=== PATIENT | female | born 1985 | race Caucasian/White ===

== ENCOUNTER 2017-03-30 18:16 | Emergency (ER) | payer OTHER ==
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
[2017-03-30] MEDS ORDERED: ACETAMINOPHEN 325 MG TABLET PO ONE (22:04)
[2017-03-30 22:56] VITALS: BP 108/69
== END 2017-03-30 22:56 | disposition home or self-care (01) ==
LOC: ER 18:16
DX: S16.1XXA Strain of muscle, fascia and tendon at neck level, initial encounter (principal); S63.501A Unspecified sprain of right wrist, initial encounter; R51 Headache; R10.9 Unspecified abdominal pain; R07.81 Pleurodynia; V89.2XXA Person injured in unspecified motor-vehicle accident, traffic, initial encounter; Z91.040 Latex allergy status; Z88.6 Allergy status to analgesic agent; Z86.14 Personal history of Methicillin resistant Staphylococcus aureus infection
CPT/HCPCS: 70450; 71250; 72125; 74176; 99284

== ENCOUNTER 2017-09-29 23:33 | Emergency (ER) | payer OTHER ==
[2017-09-30 00:24] LABS: APPEARANCE,URINE SLIGHTLY-CLOUDY; BILIRUBIN,URINE NEGATIVE (NEGATIVE); GLUCOSE, URINE NEGATIVE (NEGATIVE); KETONES,URINE NEGATIVE (NEGATIVE); LEUKOCYTE ESTERASE,URINE NEGATIVE (NEGATIVE); NITRITE,URINE NEGATIVE (NEGATIVE); PROTEIN,URINE NEGATIVE (NEGATIVE); UROBILINOGEN,URINE NEGATIVE mg/dL (<2.0)
[2017-09-30] MEDS ORDERED: ONDANSETRON 4 MG TAB.RAPDIS PO ONE (01:06)
--- NOTE | 2017-09-30 01:11 | ER Document Report ---
ED General - General Chief Complaint: Lower Abdominal Pain Stated Complaint: ABDOMINAL PAIN Time Seen by Provider: 09/30/17 00:50 TRAVEL OUTSIDE OF THE [place] IN LAST 30 DAYS: No - HPI Notes: Patient is a 32-year-old female with a history of endometriosis, tubal ligation , ovarian cyst who presents ED complaining of pelvic cramping and pain 2 weeks. Patient has associated vaginal discharge and urinary urgency. Patient states that she is still eating and drinking without any difficulties, but does have a decreased p.o. intake due to nausea. Patient states that her low back is starting to become sore. Patient denies any recent illness otherwise. She denies any other significant past medical history. Denies any headache, fever, neck pain, URI, sore throat, chest pain, palpitations, syncope, cough, shortness of breath, wheeze, dyspnea, vomiting/diarrhea, urinary retention, dysuria, hematuria, loss of control of bowel or bladder, back pain, numbness/ tingling, saddle anesthesia, muscle paralysis/weakness, or rash. - Related Data Allergies/Adverse Reactions: latex [Latex] Allergy (Mild, Verified 03/30/17 19:20) rash insect venom Allergy (Verified 09/29/17 23:37) tramadol [Tramadol] Allergy (Verified 03/30/17 19:20) ketorolac tromethamine [From Toradol] Adverse Reaction (Mild, Verified 03/30/17 19:20) nauseated Past Medical History - Social History Smoking Status: Current Some Day Smoker Frequency of alcohol use: Occasional Family History: Reviewed & Not Pertinent Patient has suicidal ideation: No Patient has homicidal ideation: No Neurological Medical History: Denies: Hx Seizures Renal/ Medical History: Denies: Hx Peritoneal Dialysis Skin Medical History: Reports Hx MRSA Psychiatric Medical History: Reports: Hx Bipolar Disorder, Hx Depression Past Surgical History: Reports: Hx Abdominal Surgery - 3 C sections, Hx Section - X 3, Hx Orthopedic Surgery - right arm, Hx Vascular Surgery - blood clots. Denies: Hx Pacemaker - Immunizations Hx Diphtheria, Pertussis, Tetanus Vaccination: Yes Review of Systems - Review of Systems Notes: REVIEW OF SYSTEMS: CONSTITUTIONAL : Denies fever, chills, or sweats. Denies recent illness. EENT: Denies eye, ear, throat, or mouth pain or symptoms. Denies nasal or sinus congestion or discharge. Denies throat, tongue, or mouth swelling or difficulty swallowing. CARDIOVASCULAR: Denies chest pain. Denies palpitations or racing or irregular heart beat. Denies ankle edema. RESPIRATORY: Denies cough, cold, or chest congestion. Denies shortness of breath, difficulty breathing, or wheezing. GASTROINTESTINAL: see hpi GENITOURINARY: see hpi FEMALE GENITOURINARY: see hpi MUSCULOSKELETAL: see hpi SKIN: Denies rash, lesions or sores. NEUROLOGICAL: Denies dizziness or lightheadedness. Denies headache. Denies problems with gait or speech. Denies sensory loss, numbness, or tingling. Denies seizures. ALL OTHER SYSTEMS REVIEWED AND NEGATIVE. Dictation was performed using [employer] voice recognition software Physical Exam - Vital signs Vitals: Temp Pulse Resp BP Pulse Ox 98.3 F 114 H 18 116/80 98 09/29/17 23:45 09/29/17 23:45 09/29/17 23:45 09/29/17 23:45 09/29/17 23:45 Notes: PHYSICAL EXAMINATION: GENERAL: Well-appearing, well-nourished and in no acute distress. A&Ox4 HEAD: Atraumatic, normocephalic. EYES: Pupils equal round and reactive to light, extraocular movements intact, conjunctiva are normal. ENT: Nares patent, oropharynx clear without exudates. Moist mucous membranes. No tonsillar hypertrophy or erythema. No sinus tenderness. NECK: Normal range of motion, supple without lymphadenopathy LUNGS: Breath sounds clear to auscultation bilaterally and equal. No wheezes rales or rhonchi. HEART: Regular rate and rhythm without murmurs ABDOMEN: Soft, nondistended abdomen. No guarding, no rebound. No masses appreciated. Normal bowel sounds present. CVA tenderness negative bilaterally. + suprapubic tenderness. No tenderness at McBurney point. Female : No inguinal adenopathy. No hernia. External genitalia without erythema, lesions, or masses. Vaginal mucosa pink with white discharge. Cervix parous, pink. Uterus is smooth. No adnexal tenderness. + mild CMT Musculoskeletal: LE's b/l: FROM to passive/active. Strength 5+/5. No focal deficits. Back: FROM. Strength 5+/5. Non-tender. No step-offs, erythema, or deformity. Extremities: No cyanosis/clubbing/edema b/l. Peripheral pulses 2+. Capillary refill less than 3 seconds. NEUROLOGICAL: Normal speech, normal gait. Normal sensory, motor exams PSYCH: Normal mood, normal affect. SKIN: Warm, Dry, normal turgor, no rashes or lesions noted. Course - Re-evaluation Re-evalutation: 09/30/17 02:55 Patient is an afebrile, well-hydrated, 32-year-old female who presents the ED with bacterial vaginosis, possible PID. Vitals are stable. See pelvic exam. CBC, CMP, urinalysis unremarkable for any acute pathology. Patient is not currently and has a history of a tubal ligation. Transvaginal ultrasound showed small amount of fluid within the endometrial canal (menses vs cerv stenosis vs endometrial polyp); otherwise benign. Patient was given Zithromax and Rocephin, and her chlamydia/gonorrhea tests are pending. Patient is tolerating p.o. Low suspicion/risk for acute appendicitis, bowel obstruction , acute cholecystitis, acute cholangitis, perforated diverticulitis, incarcerated hernia, pancreatitis, perforated ulcer, peritonitis, sepsis, pelvic inflammatory disease, ectopic , tubo-ovarian abscess, ovarian torsion, or other systemic emergent condition at this time. Patient is aware that her condition can change from initial presentation and she needs to monitor symptoms closely and seek medical attention if any acute changes. I will send her home with a prescription for Zofran and doxycycline. Conservative measures otherwise for symptoms. Recheck with OBGYN in 3-5 days. Recheck with your PCM in 3-5 days. Return to the ED with any worsening/ concerning symptoms otherwise as reviewed in discharge. Patient is in agreement. - Vital Signs Vital signs: Temp Pulse Resp BP Pulse Ox 98.3 F 114 H 14 116/80 98 09/29/17 23:45 09/29/17 23:45 09/30/17 00:10 09/29/17 23:45 09/29/17 23:45 - Laboratory Result Diagrams: 09/30/17 01:10 09/30/17 01:10 Laboratory results interpreted by me: 09/30/17 01:10 RDW 19.5 H Procedures - Pelvic Exam Pelvic exam Time completed: 01:20 Cultures obtained: Yes Wet prep obtained: Yes Witnessed by: female nurse Discharge - Discharge Clinical Impression: Bacterial vaginosis, PID (acute pelvic inflammatory disease) Condition: Stable Disposition: HOME, SELF-CARE Instructions: Doxycycline ([facility]), Ob-[facility], Pelvic Inflammatory Disease ( [facility]) Additional Instructions: Push fluids (i.e. water, cranberry juice) Proper hygenic technique Keep the skin clean Safe sexual practices with condoms everytime Tylenol/ibuprofen as needed Zofran as needed for nausea Check in with the health department this week for further testing if warranted Your chlamydia/Ghon test are pending and you will be notified if positive results; you may call in 1 day for the results as well Return immediately if symptoms worsen F/u with your PCM in 3-5 days for a recheck Schedule an appointment with OBGYN for further evaluation and management.-- bring your Ultrasound report with you. Return to the ED with any development of BUTLER/fever, trouble with vision, eye redness, worsening pain, urethral discharge, urinary retention, blood in the urine, flank pain, abdominal pain, n/v, Chest Pain, shortness of breath, joint pains, trouble breathing, or any other worsening/concerning symptoms as needed otherwise. Prescriptions: Doxycycline Hyclate 100 mg PO BID #28 capsule Forms: Smoking Cessation Education Referrals: [facility] [Provider Group] - Follow up as needed FAITH SALMON MD [ACTIVE STAFF] - Follow up as needed
[2017-09-30 01:34] LABS: ABSOLUTE BASOPHILS # (AUTO) 0.1 10^3/uL (0.0-0.2); ABSOLUTE EOSINOPHILS # (AUTO) 0.2 10^3/uL (0.0-0.6); ABSOLUTE LYMPHOCYTES (AUTO) 1.8 10^3/uL (0.5-4.7); ABSOLUTE MONOCYTES (AUTO) 0.4 10^3/uL (0.1-1.4); ABSOLUTE NEUT (AUTO) 5.2 10^3/uL (1.7-8.2); BASOPHILS % (AUTO) 0.9 % (0-2); EOSINOPHILS % (AUTO) 2.4 % (0-6); HEMATOCRIT 40.6 % (36.0-47.0); HEMOGLOBIN 13.4 g/dL (12.0-15.5); HGB HCT DIFFERENCE -0.4; LYMPHOCYTES % (AUTO) 23.9 % (13-45); MEAN CORPUSCULAR HEMOGLOBIN 27.7 pg (27.0-33.4); MEAN CORPUSCULAR HGB CONC 32.9 g/dL (32.0-36.0); MEAN CORPUSCULAR VOLUME 84 fl (80-97); MONOCYTES % (AUTO) 5.5 % (3-13); RED BLOOD COUNT 4.84 10^6/uL (3.72-5.28); RED CELL DISTRIBUTION WIDTH 19.5 % (11.5-14.0); SEGMENTED NEUTROPHILS % (AUTO) 67.3 % (42-78); WHITE BLOOD COUNT 7.7 10^3/uL (4.0-10.5)
[2017-09-30 01:35] LABS: ALANINE AMINOTRANSFERASE 35 U/L (9-52); ALKALINE PHOSPHATASE 65 U/L (38-126); ANION GAP 14 (5-19); ASPARTATE AMINO TRANSFERASE 18 U/L (14-36); BILIRUBIN,DIRECT 0.1 mg/dL (0.0-0.4); BILIRUBIN,TOTAL 0.3 mg/dL (0.2-1.3); BLOOD UREA NITROGEN 12 mg/dL (7-20); CARBON DIOXIDE 25 mmol/L (22-30); CHLORIDE 104 mmol/L (98-107); CREATININE RESULT 0.94 mg/dL (0.52-1.25); GLUCOSE 90 mg/dL (75-110); LIPASE 32.1 U/L (23-300); POTASSIUM 4.1 mmol/L (3.6-5.0); SODIUM 143.1 mmol/L (137-145); TOTAL PROTEIN 7.7 g/dL (6.3-8.2)
[2017-09-30] MEDS ORDERED: AZITHROMYCIN 250 MG TABLET PO ONE (02:22)
[2017-09-30] MEDS ORDERED: CEFTRIAXONE INJ 250 MG VIAL IM ONE (02:22)
[2017-09-30] MEDS ORDERED: LIDOCAINE 1% INJ-PF (10 MG/ML) 30 ML SDV INJ ONE (02:22)
--- NOTE | 2017-09-30 02:52 | RADIOLOGY REPORT (SQ) ---
EXAM DESCRIPTION: U/S NON OB PEL TV W/DOPPLER CLINICAL HISTORY: 32 years Female, pelvic pain COMPARISON: None. TECHNIQUE: Complete pelvic ultrasound with transvaginal imaging. Limited color and spectral Doppler imaging of the ovaries. FINDINGS: The uterus measures 10.7 x 7.4 x 5.7 cm. Endometrium measures 1.7 cm. Minimal fluid within the endometrium and cervix. The cervix measures 2.9 cm in length with nabothian cysts. No myometrial abnormalities. The right ovary measures 2.9 x 2.1 x 1.8 cm. The left ovary measures 3.8 x 2.4 x 2.1 cm. Flow identified in the ovaries bilaterally. Small amount of free pelvic fluid. IMPRESSION: 1. Small amount of fluid within the endometrial canal. This may be related to menses however cervical stenosis or endometrial polyp could produce a similar appearance. Continued follow-up recommended. 2. Small amount of free pelvic fluid is likely physiologic.
[2017-09-30 03:10] VITALS: BP 112/77
== END 2017-09-30 03:11 | disposition home or self-care (01) ==
LOC: ER 23:33
DX: N76.0 Acute vaginitis (principal); B96.89 Other specified bacterial agents as the cause of diseases classified elsewhere; N73.9 Female pelvic inflammatory disease, unspecified; Z98.51 Tubal ligation status; Z91.040 Latex allergy status
CPT/HCPCS: 99284; 96372; 36415; 87086; 87210; 83690; 85025; 81025; 87088; 80053; 81001; 87491; 87591; 76830; 93976; S0119; J3490; J0696

== ENCOUNTER 2018-10-21 12:19 | Emergency (ER) | payer SELFPAY ==
--- NOTE | 2018-10-21 13:24 | ER Document Report ---
ED GI/ - General Chief Complaint: Low Back Pain Stated Complaint: LOW BACK PAIN Time Seen by Provider: 10/21/18 13:23 TRAVEL OUTSIDE OF THE [place] IN LAST 30 DAYS: No - Related Data Allergies/Adverse Reactions: latex [Latex] Allergy (Mild, Verified 03/30/17 19:20) rash insect venom Allergy (Verified 09/29/17 23:37) tramadol [Tramadol] Allergy (Verified 03/30/17 19:20) ketorolac tromethamine [From Toradol] Adverse Reaction (Mild, Verified 03/30/17 19:20) nauseated Past Medical History - Social History Family History: Reviewed & Not Pertinent Neurological Medical History: Denies: Hx Seizures Renal/ Medical History: Denies: Hx Peritoneal Dialysis Skin Medical History: Reports Hx MRSA Psychiatric Medical History: Reports: Hx Bipolar Disorder, Hx Depression Past Surgical History: Reports: Hx Abdominal Surgery - 3 C sections, Hx Section - X 3, Hx Orthopedic Surgery - right arm, Hx Vascular Surgery - blood clots. Denies: Hx Pacemaker - Immunizations Hx Diphtheria, Pertussis, Tetanus Vaccination: Yes Physical Exam - Vital signs Vitals: Temp Pulse Resp BP Pulse Ox 97.4 F 71 16 102/61 98 10/21/18 12:55 10/21/18 12:55 10/21/18 12:55 10/21/18 12:55 10/21/18 12:55 Course - Vital Signs Vital signs: Temp Pulse Resp BP Pulse Ox 97.4 F 71 16 102/61 98 10/21/18 12:55 10/21/18 12:55 10/21/18 12:55 10/21/18 12:55 10/21/18 12:55
[2018-10-21] MEDS ORDERED: NORMAL SALINE 1000 ML 1,000 ML IV ONE (13:33)
--- NOTE | 2018-10-21 13:35 | ER Document Report ---
ED Medical Screen (RME) - General Chief Complaint: Low Back Pain Stated Complaint: LOW BACK PAIN Time Seen by Provider: 10/21/18 13:23 Mode of Arrival: Ambulatory Information source: Patient Notes: 33-year-old female presented to ED for complaint of abdominal pain nausea vomiting and left flank pain. She states she is having a lot of trouble urinating. She states she dribbled a little bit this morning but has not urinated since then. Patient has a history of having blood clots with her last and needed to have blood clots removed from her arm her leg and her abdomen. Patient does have moderate abdominal tenderness generalized left flank tenderness walks with a bent over gait and states she has vomited at least 2 or 3 times today. She states she drank a protein shake this morning but was not able to drink much of anything else due to the nausea and vomiting. Patient does have hypoactive bowel sounds. I have greeted and performed a rapid initial assessment of this patient. A comprehensive ED assessment and evaluation of the patient, analysis of test results and completion of medical decision making process will be conducted by an additional ED providers. TRAVEL OUTSIDE OF THE [place] IN LAST 30 DAYS: No - Related Data Allergies/Adverse Reactions: latex [Latex] Allergy (Mild, Verified 03/30/17 19:20) rash insect venom Allergy (Verified 09/29/17 23:37) tramadol [Tramadol] Allergy (Verified 03/30/17 19:20) ketorolac tromethamine [From Toradol] Adverse Reaction (Mild, Verified 03/30/17 19:20) nauseated Past Medical History Neurological Medical History: Denies: Hx Seizures Renal/ Medical History: Denies: Hx Peritoneal Dialysis Skin Medical History: Reports Hx MRSA Psychiatric Medical History: Reports: Hx Bipolar Disorder, Hx Depression Past Surgical History: Reports: Hx Abdominal Surgery - 3 C sections, Hx Section - X 3, Hx Orthopedic Surgery - right arm, Hx Vascular Surgery - blood clots. Denies: Hx Pacemaker - Immunizations Hx Diphtheria, Pertussis, Tetanus Vaccination: Yes Physical Exam - Vital signs Vitals: Temp Pulse Resp BP Pulse Ox 97.4 F 71 16 102/61 98 10/21/18 12:55 10/21/18 12:55 10/21/18 12:55 10/21/18 12:55 01/04/19 12:55 Course - Vital Signs Vital signs: Temp Pulse Resp BP Pulse Ox 97.4 F 71 16 102/61 98 10/21/18 12:55 10/21/18 12:55 10/21/18 12:55 10/21/18 12:55 10/21/18 12:55
[2018-10-21 16:15] LABS: ABSOLUTE BASOPHILS # (AUTO) 0.1 10^3/uL (0.0-0.2); ABSOLUTE EOSINOPHILS # (AUTO) 0.5 10^3/uL (0.0-0.6); ABSOLUTE LYMPHOCYTES (AUTO) 2.2 10^3/uL (0.5-4.7); ABSOLUTE MONOCYTES (AUTO) 0.6 10^3/uL (0.1-1.4); ABSOLUTE NEUT (AUTO) 2.4 10^3/uL (1.7-8.2); BASOPHILS % (AUTO) 1.3 % (0-2); EOSINOPHILS % (AUTO) 9.2 % (0-6); HEMATOCRIT 34.8 % (36.0-47.0); HEMOGLOBIN 11.4 g/dL (12.0-15.5); LYMPHOCYTES % (AUTO) 38.2 % (13-45); MEAN CORPUSCULAR HEMOGLOBIN 26.4 pg (27.0-33.4); MEAN CORPUSCULAR HGB CONC 32.9 g/dL (32.0-36.0); MEAN CORPUSCULAR VOLUME 80 fl (80-97); MONOCYTES % (AUTO) 9.7 % (3-13); PLATELET COUNT 237 10^3/uL (150-450); RED BLOOD COUNT 4.32 10^6/uL (3.72-5.28); SEGMENTED NEUTROPHILS % (AUTO) 41.6 % (42-78); TOTAL CELLS COUNTED % (AUTO) 100 %; WHITE BLOOD COUNT 5.7 10^3/uL (4.0-10.5)
--- NOTE | 2018-10-21 16:24 | ER Document Report ---
Addendum entered and electronically signed by ROGE FARIAS PA-C 10/21/18 19:24: Course - Re-evaluation Re-evalutation: 10/21/18 19:22 Patient was ready for discharge and blood pressure was 93/51 while sitting with a map of 63 and 90/51 while laying. Chart review shows that her blood pressure is widely variable but at this point I would like to give her a small p.o. challenge and get another set of vitals. The patient had IV access and IV fluids were not infusing even with the pump she only received about 200 mL's total. IV was DC'd. Plan is to give her Zofran 4 mg ODT and p.o. challenge her with a large cup of water. - Vital Signs Vital signs: Temp Pulse Resp BP Pulse Ox 97.4 F 71 16 102/61 98 10/21/18 12:55 10/21/18 12:55 10/21/18 12:55 10/21/18 12:55 10/21/18 12:55 - Laboratory Result Diagrams: 10/21/18 15:56 10/21/18 15:56 Laboratory results interpreted by me: 10/21/18 10/21/18 15:56 15:56 Hgb 11.4 L Hct 34.8 L MCH 26.4 L RDW 16.0 H Seg Neutrophils % 41.6 L Eosinophils % 9.2 H Carbon Dioxide 32 H Glucose 125 H Original Note: ED General - General Chief Complaint: Low Back Pain Stated Complaint: LOW BACK PAIN Time Seen by Provider: 10/21/18 13:23 Mode of Arrival: Ambulatory Notes: 33-year-old female presents the emergency department for severe left flank pain that radiates around her left side to her abdomen. Patient states that he she is having trouble urinating but denies urinary retention. She describes it as sitting on the toilet and it taking "an hour "to be able to urinate. Patient denies fevers. Denies shortness of breath or chest pain. Patient planes of nausea and vomiting. Patient complains of reduced appetite. Patient denies diarrhea. Patient denies urinary urgency but does endorse difficulty with urination. She endorses a mild amount of vaginal discharge. She denies any saddle paresthesias. Patient's last bowel movement 3 days ago. Patient with history of tubal ligation. TRAVEL OUTSIDE OF THE [place] IN LAST 30 DAYS: No - Related Data Allergies/Adverse Reactions: latex [Latex] Allergy (Mild, Verified 03/30/17 19:20) rash insect venom Allergy (Verified 09/29/17 23:37) tramadol [Tramadol] Allergy (Verified 03/30/17 19:20) ketorolac tromethamine [From Toradol] Adverse Reaction (Mild, Verified 03/30/17 19:20) nauseated Past Medical History - General Information source: Patient - Social History Smoking Status: Current Every Day Smoker Chew tobacco use (# tins/day): No Frequency of alcohol use: None Drug Abuse: None Family History: Reviewed & Not Pertinent Patient has suicidal ideation: No Patient has homicidal ideation: No Neurological Medical History: Denies: Hx Seizures Renal/ Medical History: Denies: Hx Peritoneal Dialysis Skin Medical History: Reports Hx MRSA Psychiatric Medical History: Reports: Hx Bipolar Disorder, Hx Depression Past Surgical History: Reports: Hx Abdominal Surgery - 3 C sections, Hx Section - X 3, Hx Orthopedic Surgery - right arm, Hx Vascular Surgery - blood clots. Denies: Hx Pacemaker - Immunizations Hx Diphtheria, Pertussis, Tetanus Vaccination: Yes Review of Systems - Review of Systems Constitutional: See HPI EENT: No symptoms reported Cardiovascular: See HPI Respiratory: See HPI Gastrointestinal: See HPI Genitourinary: See HPI Female Genitourinary: See HPI Musculoskeletal: No symptoms reported Skin: No symptoms reported Hematologic/Lymphatic: No symptoms reported Neurological/Psychological: No symptoms reported Physical Exam - Vital signs Vitals: Temp Pulse Resp BP Pulse Ox 97.4 F 71 16 102/61 98 10/21/18 12:55 10/21/18 12:55 10/21/18 12:55 10/21/18 12:55 10/21/18 12:55 - Notes Notes: Reviewed vital signs and nursing note as charted by RN. CONSTITUTIONAL: Appears in mild distress, well-nourished, acting appropriately for age HEAD: Normocephalic, atraumatic, no swelling EYES: PERRL, Conjunctivae clear, no drainage, EOMI, no scleral icterus ENT: External ears without lesions, External auditory canal is patent, airway patent, mucous membranes pink and moist NECK: Supple, no masses CARD: Regular rate and rhythm, no murmurs, no rubs, no gallops, capillary refill < 2 seconds, symmetric pulses RESP: The lungs are clear to auscultation bilaterally, no wheezing, no rales, no rhonchi. Respiratory rate and effort are normal, normal chest excursion. No respiratory distress, no retractions, no stridor, no nasal flaring, no accessory muscle use. ABD/GI: Normal bowel sounds, non-distended, soft, tenderness to palpation left lower quadrant, masses noted across lower abdomen possibly consistent with ovarian cysts, no rebound, no guarding, no palpable organomegaly : Exquisite left CVA tenderness EXT: Normal ROM in all joints, non-tender to palpation, no effusions, no edema SKIN: Normal color for age and race, warm, dry, good turgor, no acute lesions noted NEURO: No facial asymmetry, moves all extremities equally, motor and sensory function intact Course - Re-evaluation Re-evalutation: 10/21/18 16:28 33-year-old female in mild distress presents to the emergency department for sharp lower back pain that radiates to her abdomen with difficulty urinating. Patient denies urinary retention but states that it takes her a long time to complete urination. She did have some dribbles this morning. She denies fevers or saddle paresthesias. She denies IV drug use physical exam showed exquisite left CVA tenderness and tenderness to palpation left lower quadrant. Plan is to order a CT limited to assess for renal stones. Blood work has been drawn, urine has been collected. 10/21/18 18:08 CT limited for renal stones completed did show a left-sided nonobstructive renal calculi and a large amount of stool in the colon. The patient's pain most likely reflects constipation as she has not had a bowel movement in several days. Her pain could be related to the kidney stone because she has the exquisite left CVA tenderness, but because she is positive for opiates and I suspect she is a user she could also have hyperesthesia. also the stone is nonobstructing and I am less concerned for any acute kidney condition requiring hospitalization or transfer. Urine drug screening was completed and she was positive for opiates and for cocaine. At this time there is no emergent condition and I will fluid challenge her to assess if she is stable for discharge. I will instruct her to increase her fiber intake and her fluids to help with her constipation. 10/21/18 18:08 10/21/18 18:11 - Vital Signs Vital signs: Temp Pulse Resp BP Pulse Ox 97.4 F 71 16 102/61 98 10/21/18 12:55 10/21/18 12:55 10/21/18 12:55 10/21/18 12:55 10/21/18 12:55 - Laboratory Result Diagrams: 10/21/18 15:56 10/21/18 15:56 Laboratory results interpreted by me: 10/21/18 10/21/18 15:56 15:56 Hgb 11.4 L Hct 34.8 L MCH 26.4 L RDW 16.0 H Seg Neutrophils % 41.6 L Eosinophils % 9.2 H Carbon Dioxide 32 H Glucose 125 H Discharge - Discharge Clinical Impression: Left flank pain Abdominal pain Qualifiers: Abdominal location: left lower quadrant Qualified Code(s): R10.32 - Left lower quadrant pain Condition: Good Disposition: HOME, SELF-CARE Instructions: Abdominal Pain ([facility]) Additional Instructions: Kidney Stone You are passing or have passed a kidney stone. These stones are usually due to increased calcium or uric acid concentrations in your urine. Stones within the kidney itself are not painful. The pain occurs as the stone leaves the kidney to pass down the long tube, called the ureter, leading to the bladder. If the stone is small, it will usually pass by itself. Most patients can pass the stone at home. You will usually receive medications for pain, nausea or vomiting, and sometimes a medication to assist in passing the kidney stone. However, if the pain is very severe or if vomiting prevents you from taking oral pain medications, you may need to return for further treatment. Drink three or four quarts of fluids per day. You will be given pain medication (if needed) and urine strainers. Strain all your urine to see if the stone passes. If your doctor has asked you to bring the stone in for analysis, return with the stone once it has passed. Return if pain or vomiting become severe, if you develop a high fever, if you are unable to pass your urine, or if other unusual symptoms occur.
[2018-10-21 16:32] LABS: ALANINE AMINOTRANSFERASE 29 U/L (9-52); ALBUMIN 3.8 g/dL (3.5-5.0); ALKALINE PHOSPHATASE 50 U/L (38-126); ANION GAP 6 (5-19); ASPARTATE AMINO TRANSFERASE 23 U/L (14-36); BILIRUBIN,DIRECT 0.2 mg/dL (0.0-0.4); BILIRUBIN,TOTAL 0.3 mg/dL (0.2-1.3); BLOOD UREA NITROGEN 12 mg/dL (7-20); CALCIUM 9.5 mg/dL (8.4-10.2); CARBON DIOXIDE 32 mmol/L (22-30); CHLORIDE 100 mmol/L (98-107); GLUCOSE 125 mg/dL (75-110); POTASSIUM 3.9 mmol/L (3.6-5.0); SODIUM 137.8 mmol/L (137-145); TOTAL PROTEIN 6.8 g/dL (6.3-8.2)
[2018-10-21 16:51] LABS: URINE AMPHETAMINES SCREEN NEGATIVE; URINE BARBITURATES SCREEN NEGATIVE; URINE BENZODIAZEPINES SCREEN NEGATIVE; URINE COCAINE SCREEN UNCONFIRMED POSITIVE; URINE MARIJUANA (THC) SCREEN NEGATIVE; URINE METHADONE SCREEN NEGATIVE; URINE PHENCYCLIDINE SCREEN NEGATIVE
[2018-10-21] MEDS ORDERED: ACETAMINOPHEN 325 MG TABLET PO ONE (17:30)
--- NOTE | 2018-10-21 17:46 | RADIOLOGY REPORT (SQ) ---
EXAM DESCRIPTION: CT LTD RENAL STONE PROTOCOL ON COMPLETED DATE/TIME: 10/21/2018 5:24 pm REASON FOR STUDY: Left CVA tenderness COMPARISON: CT chest abdomen pelvis 03/30/2017 TECHNIQUE: CT scan of the abdomen and pelvis performed without intravenous or oral contrast. Images reviewed with lung, soft tissue, and bone windows. Reconstructed coronal and sagittal MPR images revi ewed. All images stored on PACS. All CT scanners at this facility use dose modulation, iterative reconstruction, and/or weight based d osing when appropriate to reduce radiation dose to as low as reasonably achievable (ALARA). [facility]: Dose Right [facility]: CareDose [facility]: Dose Right [facility]: Teradose 4D [facility]: Smart Kyield RADIATION DOSE: CT Rad equipment meets quality standard of care and radiation dose reduction techniq ues were employed. CTDIvol: 4.9 mGy. DLP: 269 mGy-cm.mGy. LIMITATIONS: None. FINDINGS: LOWER CHEST: Minimal bibasilar atelectasis NON-CONTRASTED LIVER, SPLEEN, ADRENALS: Evaluation limited by lack of IV contrast. No identified sign ificant masses. PANCREAS: No masses. No peripancreatic inflammatory changes. GALLBLADDER: Contracted, not well seen RIGHT KIDNEY AND URETER: No suspicious masses. Assessment limited by lack of IV contrast. No signif icant calcifications. No hydronephrosis or hydroureter. LEFT KIDNEY AND URETER: No suspicious masses. Assessment limited by lack of IV contrast. Left upper pole intrarenal nonobstructive 4-5 mm calculi. No left ureteral stones. No hydronephrosis or hydro ureter. AORTA AND RETROPERITONEUM: No aneurysm. No retroperitoneal masses or adenopathy. BOWEL AND PERITONEAL CAVITY: No obvious masses or inflammatory changes. No free fluid. Large amount of stool throughout the colon APPENDIX: Normal. PELVIS, BLADDER, AND ABDOMINAL WALL:No abnormal masses. No free fluid. Bladder normal. Normal size f emale pelvic organs BONES: No significant findings. OTHER: No other significant finding. IMPRESSION: Left-sided intrarenal nonobstructive calculi in the upper pole kidney. Large amount of stool throughout the colon. COMMENT: Quality ID # [id number]: Final reports with documentation of one or more dose reduction techniques (e.g., Automated exposure control, adjustment of the mA and/or kV according to patient size, use of iterative reconstruction technique) TECHNICAL DOCUMENTATION: JOB ID: [id number] [employer]- All Rights Reserved Reading location - IP/workstation name: [email or web address]
[2018-10-21 18:43] LABS: APPEARANCE,URINE TURBID; BILIRUBIN,URINE NEGATIVE (NEGATIVE); CALCIUM OXALATE CRYSTALS,URINE FEW /HPF; COLOR,URINE YELLOW; GLUCOSE, URINE NEGATIVE (NEGATIVE); KETONES,URINE NEGATIVE (NEGATIVE); LEUKOCYTE ESTERASE,URINE NEGATIVE (NEGATIVE); NITRITE,URINE NEGATIVE (NEGATIVE); PROTEIN,URINE NEGATIVE (NEGATIVE); UROBILINOGEN,URINE NEGATIVE mg/dL (<2.0)
[2018-10-21] MEDS ORDERED: ONDANSETRON 4 MG TAB.RAPDIS PO ONE (19:22)
[2018-10-21 19:24] VITALS: BP 100/47
== END 2018-10-21 19:50 | disposition home or self-care (01) ==
LOC: ER 12:19
DX: N20.0 Calculus of kidney (principal); K59.00 Constipation, unspecified; R10.9 Unspecified abdominal pain; R10.32 Left lower quadrant pain; M54.5 Low back pain; R11.2 Nausea with vomiting, unspecified; R63.0 Anorexia; N89.8 Other specified noninflammatory disorders of vagina; R39.89 Other symptoms and signs involving the genitourinary system; R19.00 Intra-abdominal and pelvic swelling, mass and lump, unspecified site; F17.200 Nicotine dependence, unspecified, uncomplicated; Z98.51 Tubal ligation status; Z91.040 Latex allergy status; Z91.038 Other insect allergy status; Z88.5 Allergy status to narcotic agent
CPT/HCPCS: 99284; 96360; 96361; 36415; 85025; 81025; 80053; 81001; 80307; 76380; S0119; J7030

== ENCOUNTER 2019-08-28 09:58 | Emergency (ER) | payer SELFPAY ==
[2019-08-28] MEDS ORDERED: MORPHINE SULFATE 10 MG/ML INJ IV ONE (10:21)
--- NOTE | 2019-08-28 10:22 | ER Document Report ---
ED Medical Screen (RME) - General Chief Complaint: Pelvic Pain Stated Complaint: ABDOMINAL PAIN Time Seen by Provider: 08/28/19 10:17 Mode of Arrival: Ambulatory Information source: Patient Notes: Patient is an otherwise healthy 34-year-old female presenting to the emergency department with chief complaint of right lower quadrant abdominal pain. Patient reports pain started yesterday morning. She reports mild nausea associated with this but denies any vomiting or diarrhea. She does report some abnormal vaginal discharge as well. Patient does report a history of ovarian cyst. Patient still has her appendix. Patient reports pain is worse with any movement. Patient does take methadone and goes to the methadone clinic. Exam: Point tenderness to the right lower quadrant. I have greeted and performed a rapid initial assessment of this patient. A comprehensive ED assessment and evaluation of the patient, analysis of test results and completion of the medical decision making process will be conducted by additional ED providers. I have specifically instructed the patient or family members with the patient to immediately return to any nursing staff should anything change in the patient's condition or with their chief complaint. This medical record was dictated with voice recognizing software. There may be grammatical, syntax errors that are unintended. TRAVEL OUTSIDE OF THE [place] IN LAST 30 DAYS: No - Related Data Allergies/Adverse Reactions: latex [Latex] Allergy (Mild, Verified 03/30/17 19:20) rash insect venom Allergy (Verified 09/29/17 23:37) tramadol [Tramadol] Allergy (Verified 03/30/17 19:20) ketorolac tromethamine [From Toradol] Adverse Reaction (Mild, Verified 03/30/17 19:20) nauseated Home Medications: methadone Past Medical History - Social History Frequency of alcohol use: None Drug Abuse: None Neurological Medical History: Denies: Hx Seizures Renal/ Medical History: Denies: Hx Peritoneal Dialysis Skin Medical History: Reports Hx MRSA Psychiatric Medical History: Reports: Hx Bipolar Disorder, Hx Depression Past Surgical History: Reports: Hx Abdominal Surgery - 3 C sections, Hx Section - X 3, Hx Orthopedic Surgery - right arm, Hx Vascular Surgery - blood clots. Denies: Hx Pacemaker - Immunizations Hx Diphtheria, Pertussis, Tetanus Vaccination: Yes
[2019-08-28 11:20] LABS: ABSOLUTE BASOPHILS # (AUTO) 0.1 10^3/uL (0.0-0.2); ABSOLUTE EOSINOPHILS # (AUTO) 0.5 10^3/uL (0.0-0.6); ABSOLUTE MONOCYTES (AUTO) 0.8 10^3/uL (0.1-1.4); ABSOLUTE NEUT (AUTO) 5.3 10^3/uL (1.7-8.2); BASOPHILS % (AUTO) 0.9 % (0-2); EOSINOPHILS % (AUTO) 5.9 % (0-6); HEMATOCRIT 38.6 % (36.0-47.0); HEMOGLOBIN 12.6 g/dL (12.0-15.5); LYMPHOCYTES % (AUTO) 23.2 % (13-45); MEAN CORPUSCULAR HEMOGLOBIN 26.3 pg (27.0-33.4); MEAN CORPUSCULAR HGB CONC 32.7 g/dL (32.0-36.0); MEAN CORPUSCULAR VOLUME 80 fl (80-97); MONOCYTES % (AUTO) 9.2 % (3-13); PLATELET COUNT 251 10^3/uL (150-450); RED CELL DISTRIBUTION WIDTH 18.4 % (11.5-14.0); SEGMENTED NEUTROPHILS % (AUTO) 60.8 % (42-78); TOTAL CELLS COUNTED % (AUTO) 100 %; WHITE BLOOD COUNT 8.7 10^3/uL (4.0-10.5)
[2019-08-28 11:38] LABS: ALBUMIN 4.5 g/dL (3.5-5.0); ALKALINE PHOSPHATASE 84 U/L (38-126); ANION GAP 10 (5-19); ASPARTATE AMINO TRANSFERASE 170 U/L (14-36); BILIRUBIN,DIRECT 0.1 mg/dL (0.0-0.4); BILIRUBIN,TOTAL 0.3 mg/dL (0.2-1.3); BLOOD UREA NITROGEN 12 mg/dL (7-20); CALCIUM 9.8 mg/dL (8.4-10.2); CARBON DIOXIDE 27 mmol/L (22-30); CHLORIDE 101 mmol/L (98-107); GLUCOSE 82 mg/dL (75-110); POTASSIUM 4.7 mmol/L (3.6-5.0); TOTAL PROTEIN 7.9 g/dL (6.3-8.2)
[2019-08-28 11:58] LABS: APPEARANCE,URINE SLIGHTLY-CLOUDY; BILIRUBIN,URINE NEGATIVE (NEGATIVE); COLOR,URINE YELLOW; GLUCOSE, URINE NEGATIVE (NEGATIVE); KETONES,URINE NEGATIVE (NEGATIVE); PROTEIN,URINE NEGATIVE (NEGATIVE); URINE SPECIFIC GRAVITY 1.021
--- NOTE | 2019-08-28 12:08 | RADIOLOGY REPORT (SQ) ---
EXAM DESCRIPTION: U/S NON OB PEL TV W/DOPPLER COMPLETED DATE/TIME: 08/28/2019 11:18 am REASON FOR STUDY: RLQ abd pain LMP 08/02/2019 COMPARISON: None. TECHNIQUE: Dynamic and static grayscale images acquired of the pelvis via transvaginal approach and recorded on PACS. Additional selected color Doppler and spectral images recorded. LIMITATIONS: None. FINDINGS: UTERUS: Contour normal. No mass. ENDOMETRIAL STRIPE: No focal or generalized thickening. No masses. CERVIX: 2.1 cm. A nabothian cyst is present. RIGHT OVARY AND DOPPLER: Normal size. No worrisome masses. Normal arterial vascular flow without evid ence for torsion. There appears to be a small complex cyst measuring 14 mm. LEFT OVARY AND DOPPLER: Normal size. No worrisome masses. Normal arterial vascular flow without evide nce for torsion. FREE FLUID: None noted. OTHER: No other significant finding. MEASUREMENTS: UTERUS: 9.3 x 6.5 x 5 cm. ENDOMETRIAL STRIPE: 8 mm. RIGHT OVARY: 5.3 x 2.1 x 2.1 cm. LEFT OVARY: 3.9 x 1.7 x 1.9 cm. IMPRESSION: There appears to be a small complex cyst in the right ovary. Recommend follow-up ultras ound in 6 to 12 weeks. The study is otherwise unremarkable. TECHNICAL DOCUMENTATION: JOB ID: [id number]- All Rights Reserved Rev-03/04 Reading location - IP/workstation name: [email or web address]
[2019-08-28] MEDS ORDERED: DIPHENHYDRAMINE HCL 50 MG/ML VIAL IV ONE (12:29)
[2019-08-28] MEDS ORDERED: FENTANYL CITRATE INJ/PF 100 MCG/2 ML AMPUL IV ONE (13:34)
[2019-08-28] MEDS ORDERED: IPRATROPIUM/ALBUTEROL 0.5-2.5 MG/3 ML AMPUL NEB ONE (13:34)
--- NOTE | 2019-08-28 13:44 | ER Document Report ---
ED General - General Chief Complaint: Pelvic Pain Stated Complaint: ABDOMINAL PAIN Time Seen by Provider: 08/28/19 10:17 Mode of Arrival: Ambulatory Notes: Patient presents with several chief complaints, the primary one being right lower quadrant tenderness to palpation that is been going on for the last 3 days. Patient states that the right lower quadrant pain is constant and is not described as crampy or burning but more like stabbing. Nothing makes it better or worse. Patient also complains of cough x1 month with audible wheezing; patient is a smoker. Patient also complains of abnormal vaginal discharge. Patient states that she has had some abnormal vaginal discharge but denies any fevers or chills, denies any urinary symptoms. TRAVEL OUTSIDE OF THE [place] IN LAST 30 DAYS: No - Related Data Allergies/Adverse Reactions: latex [Latex] Allergy (Mild, Verified 03/30/17 19:20) rash insect venom Allergy (Verified 09/29/17 23:37) tramadol [Tramadol] Allergy (Verified 03/30/17 19:20) ketorolac tromethamine [From Toradol] Adverse Reaction (Mild, Verified 03/30/17 19:20) nauseated Home Medications: methadone Past Medical History - General Information source: Patient - Social History Smoking Status: Current Every Day Smoker Frequency of alcohol use: None Drug Abuse: None Family History: Reviewed & Not Pertinent Patient has suicidal ideation: No Patient has homicidal ideation: No Neurological Medical History: Reports: Hx Migraine. Denies: Hx Seizures Renal/ Medical History: Reports: Hx Kidney Stones. Denies: Hx Peritoneal Dialysis GI Medical History: Reports: Hx Ulcer Skin Medical History: Reports Hx MRSA Psychiatric Medical History: Reports: Hx Bipolar Disorder, Hx Depression Past Surgical History: Reports: Hx Abdominal Surgery, Hx Section - X 4, Hx Oral Surgery, Hx Orthopedic Surgery - right arm, Hx Vascular Surgery - blood clots x4. Denies: Hx Pacemaker - Immunizations Hx Diphtheria, Pertussis, Tetanus Vaccination: Yes Review of Systems - Review of Systems Constitutional: See HPI EENT: No symptoms reported Cardiovascular: No symptoms reported Respiratory: See HPI Gastrointestinal: See HPI Genitourinary: See HPI Female Genitourinary: See HPI Musculoskeletal: No symptoms reported Skin: No symptoms reported Hematologic/Lymphatic: No symptoms reported Neurological/Psychological: No symptoms reported Physical Exam - Vital signs Vitals: Temp Pulse Resp BP Pulse Ox 98.6 F 102 H 18 96/77 L 95 08/28/19 10:13 08/28/19 10:13 08/28/19 10:13 08/28/19 10:13 08/28/19 10:13 - Notes Notes: PHYSICAL EXAMINATION: Reviewed vital signs and charting by RN GENERAL: Alert, interacts well. No acute distress. HEAD: Normocephalic, atraumatic. EYES: Pupils equal and round. Extraocular movements intact. ENT: Oral mucosa moist, tongue midline. NECK: Full range of motion. Trachea midline. LUNGS: Diffuse inspiratory and expiratory wheezing in all solorio HEART: Regular rate and rhythm. No murmur ABDOMEN: soft, acute tenderness to palpation right lower quadrant with rebound tenderness. No distention. Bowel sounds present EXTREMITIES: Moves all 4 extremities spontaneously. No edema, No cyanosis. PSYCH: Normal affect, normal mood. SKIN: Warm, dry, normal turgor. No rashes or lesions noted. Course - Re-evaluation Re-evalutation: 08/28/19 13:43 Patient is well-appearing and nontoxic. Plan is to give her DuoNeb x2 and dexamethasone 10 mg for her wheezing. I will obtain a chest x-ray because she has had a long-standing cough and does report of subjective fevers at home. She is not tachycardic or tachypneic. Also, transvaginal ultrasound was completed which showed a 2 cm complex ovarian cyst with no free fluid in the cul-de-sac or evidence of TOA. She is complaining of abnormal vaginal discharge and plan is to perform a pelvic exam to get a wet mount. I cannot rule out an appendicitis because she is having acute right lower quadrant tenderness so I am going to proceed with a CT abdomen pelvis with IV and oral contrast because her BMI is only 19. 08/28/19 15:28 Renay Trujillo NP, graciously performed the pelvic exam. Please see her providers note per her we are going to treat for PID. Patient receives 1 dose of Flagyl 500 mg p.o. and 1 dose of doxycycline 100 mg p.o. She is still drinking the oral contrast. She has received her DuoNeb and I am going to reassess. 08/28/19 17:22 Patient also received a dose of ceftriaxone 250 mg IM once and a azithromycin [address] abdomen/pelvis with oral and IV contrast completed and no acute findings. Patient's pain most likely represents PID. She will be sent home with a 2-week course of Flagyl and doxycycline. Patient is stable for discharge - Vital Signs Vital signs: Temp Pulse Resp BP Pulse Ox 97.8 F 72 18 106/59 L 100 08/28/19 16:39 08/28/19 16:39 08/28/19 16:39 08/28/19 16:39 08/28/19 16:39 - Laboratory Result Diagrams: 08/28/19 10:30 08/28/19 10:30 Laboratory results interpreted by me: 08/28/19 08/28/19 08/28/19 10:30 10:30 10:30 MCH 26.3 L RDW 18.4 H AST 170 H Urine Urobilinogen 4.0 H Leukocyte Esterase Rfl TRACE H Discharge - Discharge Clinical Impression: Right lower quadrant abdominal pain, PID (acute pelvic inflammatory disease) Condition: Good Disposition: HOME, SELF-CARE Additional Instructions: Your are being treated for pelvic inflammatory disease. You are being started on 2 different antibiotics and you need to take these until you finish them. Please return if you have worsening pain, persistent vomiting, spike a fever greater than 101F, or have any other symptoms that are concerning to you. Please follow closely with you primary care physician or your [employer] at your earliest ability. Prescriptions: Metronidazole [Flagyl 500 mg Tablet] 500 mg PO BID 14 Days #28 tablet Doxycycline Hyclate [Vibramycin 100 mg Tablet] 100 mg PO BID #28 tablet
--- NOTE | 2019-08-28 14:06 | RADIOLOGY REPORT (SQ) ---
EXAM DESCRIPTION: CHEST 2 VIEWS COMPLETED DATE/TIME: 08/28/2019 1:50 pm REASON FOR STUDY: cough/wheezing x 1 month COMPARISON: None. EXAM PARAMETERS: NUMBER OF VIEWS: two views TECHNIQUE: Digital Frontal and Lateral radiographic views of the chest acquired. RADIATION DOSE: NA LIMITATIONS: none FINDINGS: LUNGS AND PLEURA: No opacities, masses or pneumothorax. No pleural effusion. Mild asymmet melissa density on the right lower chest felt not seen on the lateral projection felt the lump represent overlying soft tissue. MEDIASTINUM AND HILAR STRUCTURES: No masses or contour abnormalities. HEART AND VASCULAR STRUCTURES: Heart normal size. No evidence for failure. BONES: No acute findings. HARDWARE: None in the chest. OTHER: No other significant finding. IMPRESSION: NO ACUTE RADIOGRAPHIC FINDING IN THE CHEST. TECHNICAL DOCUMENTATION: JOB ID: [id number] [employer]- All Rights Reserved Reading location - IP/workstation name: [email or web address]
[2019-08-28 14:27] LABS: URINE AMPHETAMINES SCREEN NEGATIVE; URINE BARBITURATES SCREEN NEGATIVE; URINE BENZODIAZEPINES SCREEN NEGATIVE; URINE COCAINE SCREEN UNCONFIRMED POSITIVE; URINE MARIJUANA (THC) SCREEN NEGATIVE; URINE METHADONE SCREEN UNCONFIRMED POSITIVE; URINE PHENCYCLIDINE SCREEN NEGATIVE
--- NOTE | 2019-08-28 15:19 | ER Document Report ---
Doctor's Note Notes: 08/28/19 15:18 Pelvic exam done with TIM Salamanca at bedside. Patient has cervical motion tenderness and right adnexal tenderness. I spoke with YOLANDE Saucedo and recommended treatment for pelvic inflammatory disease.
[2019-08-28] MEDS ORDERED: METRONIDAZOLE 500 MG TABLET PO ONE (15:26)
[2019-08-28] MEDS ORDERED: DOXYCYCLINE HYCLATE 100 MG TABLET PO ONE (15:26)
[2019-08-28 15:44] LABS: BACTERIA (WET MOUNT) 4+ BACTERIA SEEN; EPITHELIALS (WET MOUNT) 4+ EPITHELIALS SEEN; T.VAGINALIS (WET MOUNT) NO TRICHOMONAS SEEN; WBCS (WET MOUNT) 1+ WBCS SEEN; YEAST (WET MOUNT) NO YEAST SEEN
[2019-08-28 16:43] VITALS: BP 106/59
[2019-08-28] MEDS ORDERED: CEFTRIAXONE INJ 250 MG VIAL IM ONE (16:44)
[2019-08-28] MEDS ORDERED: AZITHROMYCIN 250 MG TABLET PO ONE (16:44)
[2019-08-28 16:52] LABS: CHLAM PCR NOT DETECTED (NOT DETECT)
--- NOTE | 2019-08-28 17:17 | RADIOLOGY REPORT (SQ) ---
EXAM DESCRIPTION: CT ABD/PELVIS WITH IV ORAL COMPLETED DATE/TIME: 08/28/2019 4:52 pm REASON FOR STUDY: RLQ TTP, r/o appy COMPARISON: 03/30/2017 TECHNIQUE: CT scan of the abdomen and pelvis performed using helical scanning technique with dynamic intravenous contrast injection. No oral contrast. Images reviewed with lung, soft tissue, and bone w indows. Reconstructed coronal and sagittal MPR images reviewed. Delayed images for evaluation of the urinary system also acquired. All images stored on PACS. All CT scanners at this facility use dose modulation, iterative reconstruction, and/or weight based d osing when appropriate to reduce radiation dose to as low as reasonably achievable (ALARA). [facility]: Dose Right [facility]: CareDose [facility]: Dose Right [facility]: Teradose 4D [facility]: Marblar CONTRAST TYPE AND DOSE: contrast/concentration: Isovue 350.00 mg/ml; Total Contrast Delivered: 57.0 ml; Total Saline Delivered: 22.0 ml RENAL FUNCTION: None required. The patient is less than 50 years old. RADIATION DOSE: CT Rad equipment meets quality standard of care and radiation dose reduction techniq ues were employed. CTDIvol: 4.8 - 4.9 mGy. DLP: 525 mGy-cm.. LIMITATIONS: None. FINDINGS: LOWER CHEST: No significant findings. LIVER: Normal size. No enhancing masses. No dilated ducts. SPLEEN: Normal size. No focal lesions. PANCREAS: No masses identified. No significant calcifications. No adjacent inflammation or peripancre atic fluid collections. Pancreatic duct not dilated. GALLBLADDER: No calcified stones. No inflammatory changes to suggest cholecystitis. ADRENAL GLANDS: No significant masses. RIGHT KIDNEY AND URETER: No cysts identified. No solid masses identified. No calcified stones. No hyd ronephrosis or hydroureter. LEFT KIDNEY AND URETER: No cysts identified. No solid masses identified. No calcified stones. No hydr onephrosis or hydroureter. AORTA AND VESSELS: No aneurysm. No dissection. Renal arteries, SMA, celiac without significant stenos is. RETROPERITONEUM: No bulky retroperitoneal adenopathy. BOWEL AND PERITONEAL CAVITY: No obstruction or inflammatory changes. No free fluid. APPENDIX: Normal. PELVIS: Small amount of free fluid. Unremarkable bladder. ABDOMINAL WALL: No masses. No hernias. BONES: No acute findings. OTHER: No other significant finding. IMPRESSION: NO ACUTE FINDINGS IN THE ABDOMEN OR PELVIS ON CT SCAN WITH IV CONTRAST. TECHNICAL DOCUMENTATION: JOB ID: [id number] [place]-72 Quality ID # [id number]: Final reports with documentation of one or more dose reduction techniques (e.g., Au tomated exposure control, adjustment of the mA and/or kV according to patient size, use of iterative reconstruction technique) 2010 [employer]- All Rights Reserved Reading location - IP/workstation name: [email or web address]
[2019-08-28] MEDS ORDERED: ONDANSETRON ODT 4 MG TAB (6 TAB/ER DISP) PO PRN (17:23)
== END 2019-08-28 17:30 | disposition home or self-care (01) ==
LOC: ER 09:58
DX: N73.9 Female pelvic inflammatory disease, unspecified (principal); N83.209 Unspecified ovarian cyst, unspecified side; R10.813 Right lower quadrant abdominal tenderness; R10.31 Right lower quadrant pain; R05 Cough; R06.2 Wheezing; F17.200 Nicotine dependence, unspecified, uncomplicated; Z91.040 Latex allergy status; Z91.038 Other insect allergy status; Z88.5 Allergy status to narcotic agent; Z87.19 Personal history of other diseases of the digestive system
CPT/HCPCS: 36415; 87086; 87210; 85025; 81025; 87088; 80053; 81001; 80307; 87491; 87591; 71046; 76830; 93976; 74177; J1200; J3010; J2270; J0696; J7620; 94640; 96372; 96374; 96375; 99284